=== PATIENT | female | born 1930 | race Caucasian/White ===

== ENCOUNTER 2017-05-07 10:37 | Observation (INO) | payer MEDICARE, OTHER ==
[2017-05-07] MEDS ORDERED: Nitroglycerin TAB 0.4 MG* 0.4 MG TAB ONE (11:15)
[2017-05-07 11:17] LABS: ABS Basophils 0.1 10^3/ul (0-0.2); ABS Eosinophils 0.3 10^3/ul (0-0.6); ABS Lymphocytes 1.6 10^3/ul (1.0-4.8); ABS Monocytes 0.9 10^3/ul (0-0.8); ABS Nucleated RBC 0 10^3/ul; Hematocrit 39 % (35-47); Hemoglobin 12.6 g/dl (12.0-16.0); Lymphocyte % 17.8 % (25-47); Mean Corpuscular HGB Conc 33 g/dl (31-36); Mean Corpuscular Hemoglobin 29 pg (27-31); Mean Corpuscular Volume 87 fL (80-97); Mean Platelet Volume 10 um3 (7.4-10.4); Nucleated Red Blood Cells % 0; Platelet Count 197 10^3/ul (150-450); Red Blood Count 4.41 10^6/ul (4.0-5.4); Red Cell Distribution Width 14 % (10.5-15); White Blood Count 8.8 10^3/ul (3.5-10.8)
[2017-05-07] MEDS ORDERED: Nitroglycerin TAB 0.4 MG* 0.4 MG TAB SL ONE (11:20)
[2017-05-07 11:25] LABS: INR 0.87 (0.77-1.02)
[2017-05-07 11:38] LABS: EGFR Non-African American 33.5 (>60)
--- NOTE | 2017-05-07 11:41 | RAD ---
Indication: Chest and jaw pain. Previous myocardial infarction and stent placement. Comparison: November 05, 2007 Technique: Upright AP 1107 hours Report: Elevated lung volumes. No focal pulmonary lesion, compelling alveolar consolidation, pleural effusion, pneumothorax. Top normal heart size. Unremarkable central pulmonary vasculature and mediastinal contours. IMPRESSION: 1. Stigmata of potential chronic obstructive pulmonary disease. 2. Top normal heart size accounting for portable AP technique. 3. No acute cardiopulmonary process evident.
[2017-05-07] MEDS ORDERED: Aspirin Low Dose CHEW TAB* 81 MG PO ONE (13:00)
[2017-05-07] MEDS ORDERED: Acetaminophen TAB* 325 MG PO PRN (13:48)
[2017-05-07] MEDS ORDERED: Ondansetron INJ* 2 MG/ML VIAL IV PRN (13:48)
[2017-05-07 14:15] LABS: Urine Appearance Clear; Urine Blood Negative (Negative); Urine Color Yellow; Urine Ketones Negative (Negative); Urine Protein Negative (Negative); Urine Specific Gravity 1.011 (1.010-1.030); Urine Urobilinogen Negative (Negative)
[2017-05-07] MEDS: Heparin VIAL(*) 5000 UNITS/ML VIAL (FIVE THOUSAND) SUBCUT SCH ×2 (15:57→22:14)
--- NOTE | 2017-05-07 21:01 | HP ---
ADMISSION HISTORY AND PHYSICAL: DATE OF ADMISSION: 05/07/17 PRIMARY CARE PROVIDER: Dr. Yumi Mirza in [place]. STILL CLEANER: Dr. Grimes. HEALTHCARE PROXY: Her daughter. CODE STATUS: Full. SOURCE OF INFORMATION: History obtained from interview with the patient, review of past medical records including Dr. Grimes's most recent notes. RELIABILITY: Good. CHIEF COMPLAINT: Jaw pain. HISTORY OF PRESENT ILLNESS: This is an 87-year-old female with past medical history of CAD, required stent to RCA in 2003 with in-stent restenosis in 2007, intervened upon at [facility], presented at that time with jaw tightness, who had been in her usual state of health except for increasing back pain over the last weeks to months, awoke from sleep at 3 a.m. the night of presentation with jaw pain on bilateral sides, but no chest pressure or pain associated with back pain, palpitations, diaphoresis and sensation that she was "out of it." The pain lasted for approximately 20 minutes and then resolved on its own. She has noticed she felt increasingly fatigued especially with ambulation to the mailbox or upstairs for several months in addition to having worsening back pain , not associated with her jaw. She does note that her "dentures don't fit good " which she thinks maybe contributing to her jaw pain, but not last night. She noted increased weight at her previous PCP visits for which she was started on indapamide, which she has recently discontinued. She is booked to Dr. Grimes's office today and her stress test, which was previously scheduled for July, was moved up to 05/17/17. Her daughters are both nurses, who when heard about her jaw tightness and pain were concerned and recommended evaluation in the emergency room. PAST MEDICAL HISTORY: Includes palpitations, chronic ischemic heart disease, coronary atherosclerosis, history of two stents, CKD. MEDICATIONS: Reviewed, include indapamide, although the patient notes she has discontinued this 2.5 mg daily; CoQ10 75 mg daily; Crestor 40 mg daily; vitamin B12 500 mcg daily; vitamin D 400 units daily; metoprolol succinate 100 mg daily ; lisinopril 10 mg daily; aspirin 81 mg daily. ALLERGIES: SULFA ANTIBIOTICS, PENICILLIN, DARVON, and MACRODANTIN. FAMILY HISTORY: No heart disease. SOCIAL HISTORY: , retired nurse at [employer]. Never been a smoker. No alcohol. No illicit. Drinks tea. REVIEW OF SYSTEMS: As per HPI. Otherwise, all other systems negative. PHYSICAL EXAMINATION GENERAL: Younger than stated age, interactive, pleasant, in no apparent distress. VITAL SIGNS: When seen by this author, blood pressure 118/97, heart rate 61, respiratory rate is 17. She is 97% on room air. T-max in the emergency room is 98.9. HEENT: Oropharynx is clear. She has moist mucous membranes. NECK: She has non-elevated JVD. No supraclavicular or cervical lymphadenopathy. LUNGS: Clear to auscultation. HEART: She has regular rate and rhythm. No murmurs, rubs, or gallops. ABDOMEN: Soft, nontender, nondistended. EXTREMITIES: Warm, well perfused. She has trace to 1+ lower extremity edema bilaterally. NEUROLOGIC: She is alert and oriented x3. Her cranial nerves II through XII are intact. Gait is not assessed. She has no apparent anxiety, agitation, or depression. She is pleasant and interactive. DIAGNOSTIC STUDIES/LAB DATA: Pertinent laboratory data reviewed. White blood cell count is 8.8, hemoglobin 12.6, platelets 197. INR 0.8. BUN is 39, creatinine 1.47. Troponin I 0.00. BNP 61. TSH elevated at 8.25. Data reviewed. Chest x-ray, impression: Stigmata of potential COPD, top normal - sized heart, although AP film. EKG, sick sinus arrhythmia with frequent PVCs. No ST or T-wave inversions of V2 and T-wave flattening aVF. No other ST or T-wave changes. ASSESSMENT AND PLAN: This is an 87-year-old female with past medical history of coronary artery disease status post 2 stents, presenting with jaw tightness reminiscent of previous non-ST elevation myocardial infarction. 1. Jaw pain/jaw tightness. Trend troponins. Continue aspirin and telemetry. Repeat EKG. Continue statin at home dose. We will plan on Myoview tomorrow. Holding metoprolol as failed to achieve goal heart rate on previous testing. Can restart metoprolol after stress test. 2. Palpitations. Holding metoprolol as indicated above. 3. Elevated TSH. Add on free T3 and free T4, although notably may not be reliable in the setting of acute event. 4. Chronic kidney disease. Dose meds accordingly. 5. DVT prophylaxis. Heparin subcu. 6. Code status is full. [id number]/[facility] #: [id number] MTDD
[2017-05-08] MEDS: Heparin VIAL(*) 5000 UNITS/ML VIAL (FIVE THOUSAND) SUBCUT SCH ×2 (05:51→14:58)
[2017-05-08] MEDS ORDERED: Atorvastatin* 80 MG TAB PO SCH (09:00)
[2017-05-08] MEDS ORDERED: Aspirin Low Dose CHEW TAB* 81 MG PO SCH (09:00)
[2017-05-08] MEDS ORDERED: Cholecalciferol TAB* 400 UNIT PO SCH (09:00)
[2017-05-08] MEDS ORDERED: Cyanocobalamin TAB* 500 MCG PO SCH (09:00)
[2017-05-08] MEDS ORDERED: Lisinopril TAB* 10 MG PO SCH (09:00)
[2017-05-08] MEDS ORDERED: Aminophylline IV* 25 MG/ML 10 ML VIAL ONE (11:56)
[2017-05-08] MEDS ORDERED: Regadenoson* 0.4 MG/5 ML SYRINGE ONE (11:56)
--- NOTE | 2017-05-08 11:59 | ED ---
Becca Solorzano Thomas, scribed for Cristian Johnson MD on 05/07/17 at 1124 . HPI Chest Pain - HPI Summary HPI Summary: The patient is an 87 year old female who was woken up this morning at 03:00 with jaw pain and chest pain. This episode of pain lasted 15 minutes. The jaw pain was worse than the chest pain. In the emergency department, she does not have any chest pain or jaw pain. The patient complains of some intermittent diaphoresis. She denies nausea and vomiting. At baseline, the patient is easy to fatigue and she has leg swelling. Past medical history includes AK. - History of Current Complaint Chief Complaint: EDChestPainROMI Time Seen by Provider: 05/07/17 10:59 Onset/Duration: Started Hours Ago, Resolved Timing: Lasting Minutes - 15 Initial Severity: Moderate Current Severity: None Pain Intensity: 5 Pain Scale Used: 0-10 Numeric Aggravating Factor(s): Nothing Alleviating Factor(s): Spontaneous Resolution Associated Signs and Symptoms: Positive: Other: - Chest pain, jaw pain, diaphoresis, fatigue, leg swelling; NEGATIVE: nausea, vomiting - Allergy/Home Medications Allergies/Adverse Reactions: Allergies Allergy/AdvReac Type Severity Reaction Status Date / Time MS Nitrofurantoin Allergy Severe Rash Verified 03/07/15 18:55 [From Macrodantin] MS Penicillins [Penicillins] Allergy Severe Rash Verified 03/07/15 18:55 MS Sulfa Antibiotics Allergy Severe Rash Verified 03/07/15 18:55 [Sulfa Antibiotics] MS Propoxyphene [From Darvon] Allergy Unknown Unknown Verified 03/07/15 18:55 Reaction Details Home Medications: Home Medications Cholecalciferol TAB* [Vitamin D TAB*] 400 unit PO DAILY 05/07/17 [History Confirmed 05/07/17] Cyanocobalamin TAB* [Vitamin B12 TAB*] 500 mcg PO DAILY 05/07/17 [History Confirmed 05/07/17] Indapamide TAB* [Lozol TAB*] 2.5 mg PO DAILY PRN 05/07/17 [History Confirmed 08/19] Lisinopril TAB* [Prinivil TAB*] 10 mg PO DAILY 05/07/17 [History Confirmed 05/07] Metoprolol Succinate XL TAB* [Toprol XL TAB*] 100 mg PO DAILY 05/07/17 [History Confirmed 05/07/17] Rosuvastatin (NF) [Crestor (NF)] 40 mg PO DAILY 05/07/17 [History Confirmed 08/19] Ubidecarenone [Co Q-10] 75 mg PO DAILY 05/07/17 [History Confirmed 05/07/17] PMH/Surg Hx/FS Hx/Imm Hx Cardiovascular History: Reports: Hx Hypertension, Hx Myocardial Infarction Opthamlomology History: Denies: Hx Legally Blind - Surgical History Surgery Procedure, Year, and Place: PTCA WITH STENT PLACEMENT X2, HYSTERECTOMY Infectious Disease History: No Infectious Disease History: Reports: Hx Shingles Denies: Traveled Outside the [place] in Last 30 Days - Family History Known Family History: Positive: Other - Pericardial tamponade - Social History Alcohol Use: None Substance Use Type: Reports: None Smoking Status (MU): Never Smoked Tobacco Review of Systems Positive: Fatigue, Skin Diaphoresis Positive: Chest Pain Negative: Vomiting, Nausea Positive: Other - jaw pain, leg swelling All Other Systems Reviewed And Are Negative: Yes Physical Exam - Summary Physical Exam Summary: VITAL SIGNS: Reviewed. GENERAL: Patient is a well-developed and nourished female who is lying comfortable in the stretcher. Patient is not in any acute respiratory distress. HEAD AND FACE: No signs of trauma. No ecchymosis, hematomas or skull depressions. No sinus tenderness. EYES: PERRLA, EOMI x 2, No injected conjunctiva, no nystagmus. EARS: Hearing grossly intact. Ear canals and tympanic membranes are within normal limits. MOUTH: Oropharynx within normal limits. NECK: Supple, trachea is midline, no adenopathy, no JVD, no carotid bruit, no c- spine tenderness, neck with full ROM. CHEST: Symmetric, no tenderness at palpation LUNGS: Clear to auscultation bilaterally. No wheezing or crackles. CVS: Regular rate and rhythm, S1 and S2 present, no murmurs or gallops appreciated. ABDOMEN: Soft, non-tender. No signs of distention. No rebound no guarding, and no masses palpated. Bowel sounds are normal. EXTREMITIES: FROM in all major joints, no edema, no cyanosis or clubbing. NEURO: Alert and oriented x 3. No acute neurological deficits. Speech is normal and follows commands. SKIN: Dry and warm Triage Information Reviewed: Yes Vital Signs On Initial Exam: Initial Vitals Temp Pulse Resp BP Pulse Ox 98.9 F 75 18 133/62 98 05/07/17 10:41 05/07/17 10:41 05/07/17 10:41 05/07/17 10:41 05/07/17 10:41 Vital Signs Reviewed: Yes Diagnostics - Vital Signs Vital Signs Temp Pulse Resp BP Pulse Ox 05/07/17 10:41 98.9 F 75 18 133/62 98 - Laboratory Lab Results: Lab Results 05/07/17 Range/Units 11:00 WBC 8.8 (3.5-10.8) 10^3/ul RBC 4.41 (4.0-5.4) 10^6/ul Hgb 12.6 (12.0-16.0) g/dl Hct 39 (35-47) % MCV 87 (80-97) fL MCH 29 (27-31) pg MCHC 33 (31-36) g/dl RDW 14 (10.5-15) % Plt Count 197 (150-450) 10^3/ul MPV 10 (7.4-10.4) um3 Neut % (Auto) 68.2 (38-83) % Lymph % (Auto) 17.8 L (25-47) % Navarro % (Auto) 10.4 H (0-7) % Eos % (Auto) 3.0 (0-6) % Baso % (Auto) 0.6 (0-2) % Absolute Neuts (auto) 6.0 (1.5-7.7) 10^3/ul Absolute Lymphs (auto) 1.6 (1.0-4.8) 10^3/ul Absolute Monos (auto) 0.9 H (0-0.8) 10^3/ul Absolute Eos (auto) 0.3 (0-0.6) 10^3/ul Absolute Basos (auto) 0.1 (0-0.2) 10^3/ul Absolute Nucleated RBC 0 10^3/ul Nucleated RBC % 0 Result Diagrams: 05/07/17 11:00 05/07/17 11:00 Lab Statement: Any lab studies that have been ordered have been reviewed, and results considered in the medical decision making process. - Radiology CXR Xray Interpretation: No Acute Changes - 1. Stigmata of potential chronic obstructive pulmonary disease. 2. Top normal heart size accounting for portable AP technique. 3. No acute cardiopulmonary process evident. Dr. Johnson has reviewed this report. Radiology Interpretation Completed By: Radiologist - EKG 10:56 Cardiac Rate: NL EKG Rhythm: Sinus Rhythm - at 74 BPM Ectopy: PVCs - multiple Chest Pain Course/Dx - Course Assessment/Plan: The patient is an 87 year old female who was woken up this morning at 03:00 with jaw pain and chest pain. This episode of pain lasted 15 minutes. The jaw pain was worse than the chest pain. In the emergency department , she does not have any chest pain or jaw pain. The patient complains of some intermittent diaphoresis. She denies nausea and vomiting. At baseline, the patient is easy to fatigue and she has leg swelling. Past medical history includes AK. Test results are without any significant abnormality. Troponin is 0.00. EKG does not show any ST elevations. CXR shows 1. Stigmata of potential chronic obstructive pulmonary disease. 2. Top normal heart size accounting for portable AP technique. 3. No acute cardiopulmonary process evident. Because of the comorbidities and the symptom presentations, I discussed the case with Dr. Morrow, who accepts the patient for admission to rule out acute coronary syndrome. The patient is hemodynamically stable and alert and oriented x3. - Diagnoses Provider Diagnoses: Chest pain rule out ACS - Provider Notifications Discussed Care Of Patient With: Manfred Morrow Time Discussed With Above Provider: 12:50 Instructed by Provider To: Admit As Observation Discharge - Discharge Plan Condition: Stable Disposition: ADMITTED TO [facility] The documentation as recorded by the Becca aviles Thomas accurately reflects the service I personally performed and the decisions made by me, Cristian Johnson MD.
--- NOTE | 2017-05-08 13:55 | RAD ---
Edited for charges. Indication: Chest pain, jaw pain. Myocardial perfusion scan was performed utilizing 1 day protocol. Rest myocardial perfusion was performed after intravenous injection of 11.0 mCi of technetium 99m tetrofosmin. Pharmacological stress was applied and 25.7 mCi of technetium 99 and tetrofosmin was injected for the stress portion of the study. There is homogeneous distribution of the radiotracer throughout the left ventricle. There is no evidence of fixed or reversible perfusion defects identified. The ejection fraction at stress is 75%. Evaluation of wall motion demonstrates no focal wall motion abnormality. IMPRESSION: No definite fixed or reversible perfusion defect is identified. ASSESSMENT: Low risk Based on imaging criteria from ACC/AHA 2002 Guideline Update for the Management of Patients With Chronic Stable Angina Table 23. Noninvasive Risk Stratification. MTDD
[2017-05-08 14:26] VITALS: BP 132/74
--- NOTE | 2017-05-09 14:18 | DS ---
DISCHARGE SUMMARY: DATE OF ADMISSION: 05/07/17 DATE OF DISCHARGE: 05/08/17 PRIMARY CARE PHYSICIAN: Dr. Yumi Mirza in [place]. AGRICULTURAL ENGINEER: Dr. Grimes. PRIMARY DIAGNOSIS: Chest/jaw pain. SECONDARY DIAGNOSES: Include: 1. Coronary artery disease. 2. History of PCI and in-stent restenosis 2003 and 2007 respectively. 3. Chronic kidney disease. PERTINENT IMAGING AND PROCEDURES PERFORMED DURING HOSPITAL STAY: Chemical stress test with Myoview. Impression: Low risk, ejection fraction is 75%. Evaluation of wall motion demonstrates no focal wall motion abnormalities. PERTINENT LABORATORY DATA FROM HOSPITAL STAY: Troponin I at 0.00 on three consecutive checks. TSH 8.25, free T4 of 0.84 and free T3 is 3.20, creatinine 1.47. MEDICATIONS ON DISCHARGE: Unchanged from admission include: 1. CoQ10 75 mg daily. 2. Crestor 40 mg daily. 3. Vitamin B12 500 mcg daily. 4. Vitamin D 400 units daily. 5. Metoprolol succinate 100 mg daily. 6. Lisinopril 10 mg daily. 7. Aspirin 81 mg daily. HISTORY OF PRESENT ILLNESS AND HOSPITAL COURSE: This is an 87-year-old female, younger than stated age with a past medical history as outlined in the history of present illness on the day of admission, who woke from sleep on the night of admission with jaw pain associated with nausea as well as diaphoresis. She discussed this with her mechanism assembler office who scheduled a stress test for the following weak; however, on further discussion with her daughter presented to the emergency room for evaluation. It was thought prudent by this author to admit to the hospital and check a stress test, given history of CAD as well as sensation potential for anginal equivalent. The stress test was low risk as indicated above and the patient remained without symptoms during the course of a hospital stay. There were no complications during the course of the hospital stay. She will follow up with her PCP and mechanism assembler as indicated. The patient was cautioned to return to the hospital should she have recurrent or worsening chest pain or discomfort jaw tightness, nausea, vomiting, lightheadedness, loss of consciousness or near loss of consciousness. She was cautioned that a low risk stress does not fully rule out cardiac disease. There are no complications during this patient's hospital stay. At followup please: No specific labs or vitals that need follow-up. TIME SPENT: Greater than 45 minutes were spent on discharge of this patient, greater than half was spent [id number] with the patient. [id number]/[facility] #: [id number] RYNE
== END 2017-05-08 15:42 | disposition home or self-care (01) ==
LOC: ED 10:37 → MEDTELE 13:48
PROVIDERS: ADMIT Internal Medicine; ATTEND Internal Medicine
DX: R07.9 Chest pain, unspecified (principal); I25.10 Atherosclerotic heart disease of native coronary artery without angina pectoris; Z95.5 Presence of coronary angioplasty implant and graft; N18.9 Chronic kidney disease, unspecified; R68.84 Jaw pain; R53.83 Other fatigue; Z79.82 Long term (current) use of aspirin; R00.2 Palpitations
CPT/HCPCS: 36415; 71045; 78452; 80053; 81003; 82550; 82553; 83735; 83880; 84439; 84443; 84481; 84484; 85025; 85610; 85730; 93005; 93017; 96374; 99284; A9270-GY; A9502; G0378; J0280; J1644; J2785